=== PATIENT | female | born 1970 | race Two or more races ===

== ENCOUNTER 2025-07-28 05:58 | Inpatient (IN) | payer OTHER ==
[~2025-07-28] VITALS: Ht 165.1 cm; Wt 83.9 kg
[~2025-07-28 05:58] MED LIST: ALLEGRA ALLERG180 MG PO; CLARITIN10 MG/TAB PO; DOLOGEN CAPLET1 EACH; FLEXERIL10 MG PO; MAXITROL EYE DRO5 ML OP; NASONEX17 GM NS; SEPTRA DS TABLE1 TAB PO; SILVADENE20 GM; SINGULAIR 10MG10 MG; TAMS0.4C PO; TRAM1TAB98 PO; ZITHROMAX500 MG PO
[2025-07-28] MEDS ORDERED: GAS RELIEF80 MG PO (06:19)
[2025-07-28] MEDS ORDERED: TRAMADOL HCL E100 M1 PO (06:19)
[2025-07-28] MEDS ORDERED: 0.9 % SODIUM CHLORIDE 1,000 ML IV STA (08:25)
[2025-07-28] MEDS ORDERED: CIPROFLOXACIN IN 5 % DEXTROSE 400 MG/200 ML PIGGYBAG IV STA (08:31)
[2025-07-28] MEDS ORDERED: MORPHINE SULFATE 2 MG/ML SYRINGE IV STA ×2 (08:36→13:39)
[2025-07-28] MEDS ORDERED: CIPROFLOXACIN IN 5 % DEXTROSE 400 MG/200 ML PIGGYBAG IV ONE ×2 (09:11→20:33)
[2025-07-28] MEDS ORDERED: METRONIDAZOLE/SODIUM CHLORIDE 500 MG/100 ML PIGGYBACK IV ONE ×3 (09:33→20:34)
[2025-07-28 09:36] LABS: BASO % 0.4 % (0.1-1.2); EOS # 0.05 (0.04-0.54); EOS % 0.4 % (0.7-7.0); LYMPH # 1.83 (1.18-3.74); LYMPH % 16.2 % (19.3-53.1); MEAN PLATELET VOLUME 10.80 fl (9.4-12.4); MONO # 0.66 (0.24-0.82); MONO % 5.9 % (4.7-12.5); NEUT # 8.68 (1.56-6.13); NEUT % 76.9 % (34.0-71.1); RED CELL DISTRIBUTION WIDTH 15.4 % (11.6-14.4)
[2025-07-28 09:56] LABS: ALT/SGPT 18.0 U/L (12-78); AST/SGOT 15.0 U/L (15-37); BILIRUBIN TOTAL 0.93 mg/dL (0.3-1.2); BUN CREA RATIO 10.0 (7.0-25.0); CREATININE SERUM 0.7 mg/dL (0.55-1.02); GFR 87.2; GLOBULINA 4.7 G/DL (2.4-3.5); GLUCOSE FASTING 132.0 mg/dL (65-100); OSMOLALITY SERUM 272.0 MOSM/KG (275-295)
[2025-07-28 10:35] LABS: URINE APPEARANCE Clear; URINE BILIRRUBIN Negative (NEGATIVE); URINE BLOOD Negative; URINE COLOR Yellow; URINE GLUCOSE Negative (NEGATIVE); URINE KETONE Negative (NEGATIVE); URINE LEUKOCYTE Trace; URINE NITRATE Negative; URINE PROTEIN Negative (NEGATIVE); URINE UROBILINOGEN 0.2 E.U./dl
[2025-07-28 10:41] LABS: URINE BACTERIA 319.1 uL (0.0-1933); URINE EPITHELIAL CELLS 11.9 uL (0.0-38.8); URINE RBC 4.3 uL (0.0-20.8); URINE WBC 24.4 uL (0.0-23.2)
[2025-07-28 11:33] LABS: URINE CAST 0.14 uL (0.0-1.40)
[2025-07-28] MEDS ORDERED: FAMOTIDINE/PF 20 MG/2 ML VIAL IV STA (16:07)
[2025-07-28] MEDS ORDERED: ONDANSETRON HCL 2 MG/ML VIAL IV STA (16:07)
[2025-07-28] MEDS ORDERED: MORPHINE SULFATE 2 MG/ML SYRINGE IV ONE (16:15)
[2025-07-28] MEDS ORDERED: ONDANSETRON HCL 2 MG/ML VIAL ONE (16:54)
[2025-07-28] MEDS ORDERED: FAMOTIDINE/PF 20 MG/2 ML VIAL ONE ×2 (16:54→22:13)
[2025-07-28] MEDS ORDERED: DIPHENHYDRAMINE HCL 50 MG/ML VIAL 1ML ONE (18:28)
[2025-07-28] MEDS ORDERED: METHYLPREDNISOLONE SOD SUCC 40 MG VIAL ONE (18:28)
[2025-07-28] MEDS ORDERED: METHYLPREDNISOLONE SOD SUCC 40 MG VIAL IV ONE (18:30)
[2025-07-28] MEDS ORDERED: DIPHENHYDRAMINE HCL 50 MG/ML VIAL 1ML IV ONE (18:30)
[2025-07-28] MEDS ORDERED: MORPHINE SULFATE 2 MG/ML SYRINGE IV PRN ×2 (20:30→21:06)
[2025-07-28] MEDS ORDERED: METRONIDAZOLE/SODIUM CHLORIDE 500 MG/100 ML PIGGYBACK IV SCH (21:00)
[2025-07-28] MEDS ORDERED: CIPROFLOXACIN IN 5 % DEXTROSE 400 MG/200 ML PIGGYBAG IV SCH (21:00)
[2025-07-28] MEDS ORDERED: FAMOTIDINE/PF 20 MG in 0.9 % SODIUM CHLORIDE 8 ML IV PUSH SCH (21:06)
[2025-07-28] MEDS ORDERED: ONDANSETRON HCL 4 MG in 0.9 % SODIUM CHLORIDE 50 ML IV PRN (21:15)
[2025-07-28] MEDS ORDERED: 0.9 % SODIUM CHLORIDE 1,000 ML IV SCH (21:15)
[2025-07-29 02:53] VITALS: BP 85/56; O2SAT 99
[2025-07-29] MEDS ORDERED: METRONIDAZOLE/SODIUM CHLORIDE 500 MG/100 ML PIGGYBACK IV SCH (05:00)
[2025-07-29 08:11] LABS: BASO % 0.1 % (0.1-1.2); EOS # 0.00 (0.04-0.54); EOS % 0.0 % (0.7-7.0); LYMPH # 0.73 (1.18-3.74); LYMPH % 10.2 % (19.3-53.1); MEAN PLATELET VOLUME 11.60 fl (9.4-12.4); MONO # 0.23 (0.24-0.82); MONO % 3.2 % (4.7-12.5); NEUT # 6.17 (1.56-6.13); NEUT % 86.2 % (34.0-71.1); RED CELL DISTRIBUTION WIDTH 15.4 % (11.6-14.4)
[2025-07-29 11:39] VITALS: BP 91/51; O2SAT 100
[2025-07-29] MEDS ORDERED: CEFTRIAXONE SODIUM 2,000 MG VIAL IV SCH (17:00)
[2025-07-29 19:30] VITALS: BP 109/63
[2025-07-29] MEDS ORDERED: DIAZEPAM 5 MG TABLET PO STA (22:58)
[2025-07-30 03:03] VITALS: BP 91/55; O2SAT 99
[2025-07-30 07:54] LABS: BASO % 0.5 % (0.1-1.2); EOS # 0.12 (0.04-0.54); EOS % 1.6 % (0.7-7.0); LYMPH # 2.25 (1.18-3.74); LYMPH % 29.9 % (19.3-53.1); MEAN PLATELET VOLUME 12.20 fl (9.4-12.4); MONO # 0.48 (0.24-0.82); MONO % 6.4 % (4.7-12.5); NEUT # 4.62 (1.56-6.13); NEUT % 61.5 % (34.0-71.1); RED CELL DISTRIBUTION WIDTH 15.5 % (11.6-14.4)
[2025-07-30 08:02] LABS: ALT/SGPT 129.0 U/L (12-78); AST/SGOT 79.0 U/L (15-37); BILIRUBIN TOTAL 0.42 mg/dL (0.3-1.2); BUN CREA RATIO 15.0 (7.0-25.0); CREATININE SERUM 0.59 mg/dL (0.55-1.02); GFR 106.22; GLOBULINA 3.3 G/DL (2.4-3.5); GLUCOSE FASTING 83.0 mg/dL (65-100); OSMOLALITY SERUM 285.0 MOSM/KG (275-295)
[2025-07-30 09:46] LABS: ERYTHROCYTE SEDIMENTATION RATE 80 mm/hr (0-30)
[2025-07-30 11:22] VITALS: BP 94/50; O2SAT 100
[2025-07-30] MEDS ORDERED: DIAZEPAM 5 MG TABLET PO SCH (21:00)
[2025-07-30] MEDS ORDERED: TEMAZEPAM 15 MG CAPSULE PO SCH (21:00)
[2025-07-30] MEDS ORDERED: TRAMADOL HCL 50 MG TABLET PO STA (21:24)
[2025-07-31 01:37] VITALS: BP 89/56; O2SAT 98
[2025-07-31] MEDS ORDERED: TRAMADOL HCL 50 MG TABLET PO ONE (04:30)
[2025-07-31 08:32] VITALS: BP 101/68; O2SAT 98
[2025-07-31] MEDS ORDERED: MORPHINE SULFATE 2 MG/ML SYRINGE IV PRN (11:30)
[2025-07-31 12:37] LABS: BASO % 0.4 % (0.1-1.2); EOS # 0.14 (0.04-0.54); EOS % 2.7 % (0.7-7.0); LYMPH # 1.86 (1.18-3.74); LYMPH % 35.8 % (19.3-53.1); MEAN PLATELET VOLUME 11.80 fl (9.4-12.4); MONO # 0.41 (0.24-0.82); MONO % 7.9 % (4.7-12.5); NEUT # 2.77 (1.56-6.13); NEUT % 53.2 % (34.0-71.1); RED CELL DISTRIBUTION WIDTH 15.1 % (11.6-14.4)
[2025-07-31 13:24] LABS: ALT/SGPT 83.0 U/L (12-78); AST/SGOT 29.0 U/L (15-37); BILIRUBIN TOTAL 0.47 mg/dL (0.3-1.2); BUN CREA RATIO 14.0 (7.0-25.0); CREATININE SERUM 0.51 mg/dL (0.55-1.02); GFR 125.67; GLOBULINA 3.2 G/DL (2.4-3.5); GLUCOSE FASTING 87.0 mg/dL (65-100); OSMOLALITY SERUM 277.0 MOSM/KG (275-295)
[2025-07-31 18:07] VITALS: BP 105/65; O2SAT 98
[2025-08-01 02:28] VITALS: BP 90/50; O2SAT 96
[2025-08-01 08:46] VITALS: BP 99/64; O2SAT 97
[2025-08-01] MEDS ORDERED: AMINO ACIDS 1 EACH TABLET PO SCH (09:00)
[2025-08-01 18:38] VITALS: BP 131/71; O2SAT 100
[2025-08-02 02:54] VITALS: BP 106/67; O2SAT 97
[2025-08-02 10:15] VITALS: BP 105/73; O2SAT 98
[2025-08-02 18:35] VITALS: BP 127/80; O2SAT 97
[2025-08-03 02:38] VITALS: BP 103/68; O2SAT 98
[2025-08-03 06:14] LABS: BASO % 0.4 % (0.1-1.2); EOS # 0.25 (0.04-0.54); EOS % 5.0 % (0.7-7.0); LYMPH # 1.98 (1.18-3.74); LYMPH % 39.4 % (19.3-53.1); MEAN PLATELET VOLUME 11.40 fl (9.4-12.4); MONO # 0.31 (0.24-0.82); MONO % 6.2 % (4.7-12.5); NEUT # 2.44 (1.56-6.13); NEUT % 48.6 % (34.0-71.1); RED CELL DISTRIBUTION WIDTH 14.7 % (11.6-14.4)
[2025-08-03 06:36] LABS: ALT/SGPT 41.0 U/L (12-78); AST/SGOT 16.0 U/L (15-37); BILIRUBIN TOTAL 0.27 mg/dL (0.3-1.2); BUN CREA RATIO 7.0 (7.0-25.0); CREATININE SERUM 0.55 mg/dL (0.55-1.02); GFR 115.18; GLOBULINA 3.7 G/DL (2.4-3.5); GLUCOSE FASTING 92.0 mg/dL (65-100); OSMOLALITY SERUM 278.0 MOSM/KG (275-295)
[2025-08-03 07:11] LABS: ERYTHROCYTE SEDIMENTATION RATE 80 mm/hr (0-30)
[2025-08-03 10:44] VITALS: BP 90/53; O2SAT 98
[2025-08-03 18:28] VITALS: BP 110/65; O2SAT 98
[2025-08-04 02:39] VITALS: BP 118/74; O2SAT 99
[2025-08-04] MEDS ORDERED: METRONIDAZOLE500 MG PO (08:45)
[2025-08-04] MEDS ORDERED: INTESTINEX680 M1 PO (08:46)
[2025-08-04 10:28] VITALS: BP 117/87; O2SAT 98
== END 2025-08-04 14:30 | disposition home or self-care (01) | DRG 392 ==
LOC: ER 05:58 → MEDJ 22:15
PROVIDERS: General Practice; Internal Medicine Infectious Disease; ADMIT Internal Medicine; ATTEND Internal Medicine
PROC: BW21YZZ Computerized Tomography (CT Scan) of Abdomen and Pelvis using Other Contrast (ICD-10-PCS; principal; 2025-07-28)
PROC: 02HV33Z Insertion of Infusion Device into Superior Vena Cava, Percutaneous Approach (ICD-10-PCS; 2025-07-31)
DX: K57.92 Diverticulitis of intestine, part unspecified, without perforation or abscess without bleeding (principal); D72.828 Other elevated white blood cell count